=== PATIENT | male | born 1970 ===

== ENCOUNTER 2017-06-17 09:07 | Emergency (ER) | payer OTHER ==
[2017-06-17 09:16] VITALS: RESP 16; BMI 29.2
--- NOTE | 2017-06-17 09:39 | ED PDOC ---
HPI: General Adult Time Seen by Provider: 06/17/17 09:18 Chief Complaint (Nursing): Chest Pain Chief Complaint (Provider): Sore throat, Cough, Fever History Per: Patient History/Exam Limitations: no limitations Onset/Duration Of Symptoms: Days (x2) Current Symptoms Are (Timing): Still Present Additional Complaint(s): 46 year old male, with a past medical history of diabetes and HTN, who presents to the ED complaining of sore throat, body aches, non-productive cough, and subjective fever x2 days. Denies shortness of breath. Complaining of pleuritic chest pain when coughing. PMD: Non-[facility] Provider Past Medical History Reviewed: Historical Data, Nursing Documentation, Vital Signs Vital Signs: Last Vital Signs Temp 98.0 F 06/17/17 09:20 Pulse 96 H 06/17/17 09:20 Resp 16 06/17/17 09:20 BP 162/102 H 06/17/17 09:20 Pulse Ox 98 06/17/17 09:42 - Medical History PMH: Diabetes, HTN, Hypercholesterolemia, Hyperlipidemia - Surgical History Surgical History: No Surg Hx - Family History Family History: States: Unknown Family Hx - Home Medications Home Medications: Ambulatory Orders Medication Instructions Recorded Lisinopril 20 mg PO DAILY #30 tab 08/29/14 Cyclobenzaprine [Cyclobenzaprine 10 mg PO BID #14 tab 07/03/16 HCl] Ibuprofen [Motrin] 400 mg PO Q6 #30 tab 07/03/16 Naproxen [Naprosyn] 500 mg PO Q12H #20 tab 06/17/17 Oseltamivir [Tamiflu] 75 mg PO BID #10 cap 06/17/17 - Allergies Allergies/Adverse Reactions: Allergies Allergy/AdvReac Type Severity Reaction Status Date / Time No Known Allergies Allergy Verified 06/17/17 09:20 Review of Systems ROS Statement: Except As Marked, All Systems Reviewed And Found Negative Constitutional: Positive for: Fever (subjective) ENT: Positive for: Throat Pain Cardiovascular: Positive for: Chest Pain (pleuritic, when coughing) Respiratory: Positive for: Cough. Negative for: Shortness of Breath, Sputum Musculoskeletal: Positive for: Other (Body aches) Physical Exam - Reviewed Nursing Documentation Reviewed: Yes Vital Signs Reviewed: Yes - Physical Exam Appears: Positive for: Non-toxic, No Acute Distress Head Exam: Positive for: ATRAUMATIC, NORMAL INSPECTION, NORMOCEPHALIC Skin: Positive for: Normal Color, Warm, Dry. Negative for: Rash Eye Exam: Positive for: EOMI, Normal appearance, PERRL ENT: Positive for: Pharyngeal Erythema. Negative for: Tonsillar Exudate Neck: Positive for: Normal, Painless ROM, Supple Cardiovascular/Chest: Positive for: Regular Rate, Rhythm. Negative for: Murmur Respiratory: Positive for: Rhonchi (scattered). Negative for: Wheezing Gastrointestinal/Abdominal: Positive for: Normal Exam, Bowel Sounds, Soft. Negative for: Tenderness Back: Positive for: Normal Inspection. Negative for: L CVA Tenderness, R CVA Tenderness, Vertebral Tenderness Extremity: Positive for: Normal ROM. Negative for: Pedal Edema, Deformity Neurologic/Psych: Positive for: Alert, Oriented (x3). Negative for: Motor/ Sensory Deficits - ECG O2 Sat by Pulse Oximetry: 98 (RA) Pulse Ox Interpretation: Normal Medical Decision Making Medical Decision Making: Time: 09:31 Plan: --Chest X-Ray 2 views --Influenza A B --Reevaluation Scribe Attestation: Documented by Edward Tee, acting as a scribe for Ross Mckeon MD. Provider Scribe Attestation: All medical record entries made by the Scribe were at my direction and personally dictated by me. I have reviewed the chart and agree that the record accurately reflects my personal performance of the history, physical exam, medical decision making, and the department course for this patient. I have also personally directed, reviewed, and agree with the discharge instructions and disposition. Disposition - Clinical Impression Clinical Impression: Influenza - Patient ED Disposition Is Patient to be Admitted: No Counseled Patient/Family Regarding: Studies Performed, Diagnosis, Need For Followup, Rx Given - Disposition Referrals: [facility] [Outside] Disposition: Routine/Home Disposition Time: 10:43 Condition: FAIR Prescriptions: Naproxen [Naprosyn] 500 mg PO Q12H #20 tab Oseltamivir [Tamiflu] 75 mg PO BID #10 cap Instructions: Influenza (ED) Forms: [employer] (Kazakh)
--- NOTE | 2017-06-17 09:55 | RAD ---
HISTORY: cough COMPARISON: Chest radiograph dated 07/03/2016. TECHNIQUE: Chest PA and lateral FINDINGS: LUNGS: No active pulmonary disease. PLEURA: No significant pleural effusion identified. No pneumothorax apparent. CARDIOVASCULAR: Normal. OSSEOUS STRUCTURES: No significant abnormalities. VISUALIZED UPPER ABDOMEN: Normal. OTHER FINDINGS: None. IMPRESSION: No active disease.
[2017-06-17 10:53] VITALS: BP 126/83; PULSE 82; TEMP 97; O2SAT 99
== END 2017-06-17 10:53 | disposition home or self-care (01) ==
LOC: H.ER 09:07
DX: J11.1 Influenza due to unidentified influenza virus with other respiratory manifestations (principal); E11.9 Type 2 diabetes mellitus without complications; E78.00 Pure hypercholesterolemia, unspecified; I10 Essential (primary) hypertension

== ENCOUNTER 2018-06-21 08:34 | Emergency (ER) | payer OTHER ==
[2018-06-21 08:40] VITALS: RESP 18; O2SAT 98; BMI 31.5
[2018-06-21 08:56] VITALS: TEMP 97
[2018-06-21 09:52] LABS: BASO % 0.8 % (0.0-2.0); EOS # 0.2 K/uL (0.0-0.7); EOS % 3.4 % (0.0-4.0); HEMOGLOBIN 13.6 g/dL (12.0-18.0); LYMPH # 1.2 K/uL (1.0-4.3); LYMPH % 21.5 % (20.0-40.0); MEAN CORPUSCULAR HEMOGLOBIN 31.1 pg (27.0-31.0); MEAN CORPUSCULAR HGB CONC 33.8 g/dL (33.0-37.0); MONO # 0.4 K/uL (0.0-0.8); NEUT # 3.8 K/uL (1.8-7.0); NEUT % 67.3 % (50.0-75.0); NRBC % 0.1 % (0.0-0.0); RBC 4.37 Mil/uL (4.40-5.90); RED CELL DISTRIBUTION WIDTH 13.5 % (11.5-14.5); WHITE BLOOD COUNT 5.6 K/uL (4.8-10.8)
[2018-06-21 10:02] LABS: URINE BILIRUBIN NEGATIVE (NEGATIVE); URINE BLOOD NEGATIVE (NEGATIVE); URINE CLARITY CLEAR (Clear); URINE COLOR YELLOW (YELLOW); URINE GLUCOSE (UA) NEG (NEGATIVE); URINE LEUKOCYTE ESTERASE NEG Leu/uL (Negative); URINE PROTEIN NEGATIVE (NEGATIVE); URINE UROBILINOGEN 0.2-1.0 mg/dL (0.2-1.0)
--- NOTE | 2018-06-21 10:02 | ED PDOC ---
HPI: Abdomen Time Seen by Provider: 06/21/18 09:10 Chief Complaint (Nursing): Abdominal Pain History Per: Patient History/Exam Limitations: no limitations Onset/Duration Of Symptoms: Hrs Outside of [place] travel?: No Current Symptoms Are (Timing): Still Present Location Of Pain/Discomfort: LUQ, LLQ Quality Of Discomfort: Sharp, Pressure Associated Symptoms: denies: Fever, Chills, Nausea, Vomiting, Diarrhea, Constipation, Urinary Symptoms Exacerbating Factors: None Additional History Per: Patient Additional Complaint(s): Hx of HTN, HLD presenting with abdominal pain that started last night, states it is left sided, associated with pressure-like pain that evolved into sharp pain today. States he took naprosyn last night that helped him to sleep. States he had a kidney stone 15 - 20 years but unsure if his symptoms today are similar or not. Denies nausea, vomiting, diarrhea, constipation, urinary symptoms. PMD: Past Medical History Vital Signs: Last Vital Signs Temp 97.0 F L 06/21/18 08:50 Pulse 80 06/21/18 08:50 Resp 18 06/21/18 08:50 BP 149/90 06/21/18 08:50 Pulse Ox 98 06/21/18 08:50 - Medical History PMH: Diabetes, HTN, Hypercholesterolemia, Hyperlipidemia, Kidney Stones, Chronic Kidney Disease - Family History Family History: States: Unknown Family Hx - Immunization History Hx Tetanus Toxoid Vaccination: No Hx Influenza Vaccination: Yes Hx Pneumococcal Vaccination: No - Home Medications Home Medications: Ambulatory Orders Medication Instructions Recorded Lisinopril 20 mg PO DAILY #30 tab 08/29/14 Cyclobenzaprine [Cyclobenzaprine 10 mg PO BID #14 tab 07/03/16 HCl] Ibuprofen [Motrin] 400 mg PO Q6 #30 tab 07/03/16 Naproxen [Naprosyn] 500 mg PO Q12H #20 tab 06/17/17 Oseltamivir Cap [Tamiflu] 75 mg PO BID #10 cap 06/17/17 Dicyclomine [Bentyl] 10 mg PO TID PRN #10 cap 06/21/18 Ibuprofen [Motrin Tab] 600 mg PO Q6 PRN #15 tab 06/21/18 - Allergies Allergies/Adverse Reactions: Allergies Allergy/AdvReac Type Severity Reaction Status Date / Time No Known Allergies Allergy Verified 06/17/17 09:20 Review of Systems ROS Statement: Except As Marked, All Systems Reviewed And Found Negative Cardiovascular: Negative for: Chest Pain Respiratory: Negative for: Cough Gastrointestinal: Positive for: Abdominal Pain. Negative for: Nausea, Vomiting Genitourinary Male: Negative for: Dysuria Physical Exam - Reviewed Nursing Documentation Reviewed: Yes Vital Signs Reviewed: Yes - Physical Exam Appears: Positive for: Well, Non-toxic, No Acute Distress Head Exam: Positive for: ATRAUMATIC, NORMAL INSPECTION, NORMOCEPHALIC Skin: Positive for: Normal Color, Warm, DRY Eye Exam: Positive for: EOMI, Normal appearance, PERRL ENT: Positive for: Normal ENT Inspection Neck: Positive for: Normal, Painless ROM Cardiovascular/Chest: Positive for: Regular Rate, Rhythm Respiratory: Positive for: CNT, Normal Breath Sounds Gastrointestinal/Abdominal: Positive for: Normal Exam, Soft, Tenderness (Mild tenderness of LUQ, LLQ) Back: Positive for: Normal Inspection Extremity: Positive for: Normal ROM Neurologic/Psych: Positive for: Alert, Oriented - Laboratory Results Result Diagrams: 06/21/18 09:40 06/21/18 09:40 - ECG O2 Sat by Pulse Oximetry: 98 Pulse Ox Interpretation: Normal Medical Decision Making Medical Decision MakinAM Hx of HTN, HLD presenting with L sided abdominal pain --Comfortable, normal vitals, well appearing --Differential includes but not limited to: gas, diverticulitis, colitis, constipation, kidney stone --Will get labs, CT, give toradol, and re-eval 1300 Patient being endorsed from provider to Dr. Sanchez. Disposition - Clinical Impression Clinical Impression: Abdominal pain - Patient ED Disposition Is Patient to be Admitted: Transfer of Care Discussed With : John Sanchez III - Disposition Referrals: Ramiro Chu MD [Medical Doctor] - Disposition: Transfer of Care Disposition Time: 13:00 Condition: STABLE Additional Instructions: See securities consultant if pain persists for possible further testing/colonoscopy. Return to ER for any new or worsening symptoms. See PMD for outpatient ultrasound of your kidneys. Prescriptions: Dicyclomine [Bentyl] 10 mg PO TID PRN #10 cap PRN Reason: Gi Distress Ibuprofen [Motrin Tab] 600 mg PO Q6 PRN #15 tab PRN Reason: Pain, Moderate (4-7) Instructions: Acute Abdomen (Belly Pain), Adult (DC) Forms: [facility] (Sri Lankan)
[2018-06-21 10:09] LABS: ALB/GLOB RATIO 1.6 (1.0-2.1); ALBUMIN 4.5 g/dL (3.5-5.0); ALT/SGPT 39 U/L (21-72); AST/SGOT 40 U/L (17-59); BILIRUBIN,DIRECT 0.2 mg/ml (0.0-0.4); BLOOD UREA NITROGEN 22 mg/dl (9-20); CALCIUM 9.3 mg/dL (8.4-10.2); GFR NON-AFRICAN AMERICAN > 60
[2018-06-21 10:45] VITALS: BP 125/80; PULSE 70
[2018-06-21] MEDS ORDERED: Iohexol 300 100 ML IJ ONE (10:52)
[2018-06-21] MEDS ORDERED: Sodium Chloride 0.9% 50 ML IV ONE (10:52)
--- NOTE | 2018-06-21 13:17 | ED PDOC ---
- Laboratory Results Result Diagrams: 06/21/18 09:40 06/21/18 09:40 Lab Results: Total Bilirubin 0.7 mg/dl (0.2-1.3) 06/21/18 09:40 Direct Bilirubin 0.2 mg/ml (0.0-0.4) 06/21/18 09:40 AST 40 U/L (17-59) 06/21/18 09:40 ALT 39 U/L (21-72) 06/21/18 09:40 Alkaline Phosphatase 79 U/L (38-126) 06/21/18 09:40 Total Protein 7.4 G/DL (6.3-8.2) 06/21/18 09:40 Albumin 4.5 g/dL (3.5-5.0) 06/21/18 09:40 Globulin 2.8 gm/dL (2.2-3.9) 06/21/18 09:40 Albumin/Globulin Ratio 1.6 (1.0-2.1) 06/21/18 09:40 Urine Color Yellow (YELLOW) 06/21/18 09:40 Urine Clarity Clear (Clear) 06/21/18 09:40 Urine pH 5.0 (5.0-8.0) 06/21/18 09:40 Ur Specific Byron 1.021 (1.003-1.030) 06/21/18 09:40 Urine Protein Negative mg/dL (NEGATIVE) 06/21/18 09:40 Urine Glucose (UA) Neg mg/dL (NEGATIVE) 06/21/18 09:40 Urine Ketones Negative mg/dL (NEGATIVE) 06/21/18 09:40 Urine Blood Negative (NEGATIVE) 06/21/18 09:40 Urine Nitrate Negative (NEGATIVE) 06/21/18 09:40 Urine Bilirubin Negative (NEGATIVE) 06/21/18 09:40 Urine Urobilinogen 0.2-1.0 mg/dL (0.2-1.0) 06/21/18 09:40 Ur Leukocyte Esterase Neg Xuan/uL (Negative) 06/21/18 09:40 Urine RBC (Auto) 3 /hpf (0-3) 06/21/18 09:40 Urine Microscopic WBC 1 /hpf (0-5) 06/21/18 09:40 - ECG O2 Sat by Pulse Oximetry: 98 Medical Decision Making Medical Decision Making: Time: 1300 Patient is endorsed to provider from Dr. Serrano. Pending CT. Time:1400 FINDINGS: LOWER THORAX: Mild passive/dependent type atelectasis both posterior lower lung celis. No effusion or basilar pneumothorax. Heart size is mildly enlarged. No significant pericardial effusion.. LIVER: Liver is enlarged measuring over 21 cm in CC dimension.. No obvious hepatic masses collections or calcifications. Portal and splenic veins opacified. GALLBLADDER AND BILE DUCTS: Gallbladder is physiologically distended. No evidence of intraluminal gallbladder calculi. PANCREAS: Pancreas is slightly atrophic and fatty replaced. No pancreatic masses collections or calcifications.. SPLEEN: Spleen exhibits relatively normal size and attenuation pattern without mass collection or calcification.. ADRENALS: No adrenal lesions are identified. Able. KIDNEYS AND URETERS: Kidneys demonstrate symmetric nephrograms. There is a small curvilinear 3.4 mm nonobstructing calcification seen in the upper/mid pole collecting system right kidney. Small 3.6 mm on nonobstructing calculus seen in the lower pole collecting system left kidney. Probable bilateral renal cysts, the largest of these suspected cyst located upper pole right kidney measuring approximately 16.5 mm; however Hounsfield units in the upper teens suggest proteinaceous content possibly hyperdense or hemorrhagic cyst. Recommend follow-up ultrasound further evaluation to exclude any solid components.. BLADDER: The urinary bladder is incompletely distended which in part accounts for thick- walled appearance. Muscular hypertrophy presumably contributes. Correlation with urinalysis to exclude cystitis. Prostate gland. REPRODUCTIVE: Prostate gland measures approximately 4.7 cm. Prostatic calcifications present. APPENDIX: Normal-appearing appendix containing air and hyperdense debris present. BOWEL: Evaluation of the abdomen bowel limited due to the lack of circulating intravenous contrast material. Stomach is incompletely distended with slight thick-walled appearance. Visualized loops of small bowel exhibit normal contour and caliber. There appears to be some fecalized content within few distal loops of small bowel. Stool and air seen throughout the large bowel. No definitive mural wall thickening. PERITONEUM: Unremarkable. No fluid collection. No free air. Small bilateral fat containing inguinal hernias are present. There is also small fat containing umbilical hernia. LYMPH NODES: Unremarkable. No enlarged lymph nodes. VASCULATURE: Unremarkable. No aortic aneurysm. No aortic atherosclerotic calcification or mural plaque present. BONES: Mild multilevel degenerative spondylosis of the lower thoracic and lumbar spine.. OTHER FINDINGS: None. IMPRESSION: Hepatomegaly with mild to moderate hepatic infiltration.. There are bilateral nonobstructing renal calculi. Probable bilateral renal cysts the largest located in the upper pole right kidney. Follow-up of renal ultrasound could be performed to confirm and exclude any solid components. Mild urinary bladder wall thickening likely due to incomplete distention and muscular hypertrophy however correlation with urinalysis to exclude cystitis. Scribe Attestation: Documented by Buster Moyer, acting as a scribe for John Sanchez III, DO. Provider Scribe Attestation: All medical record entries made by the Scribe were at my direction and personally dictated by me. I have reviewed the chart and agree that the record accurately reflects my personal performance of the history, physical exam, medical decision making, and the department course for this patient. I have also personally directed, reviewed, and agree with the discharge instructions and disposition. Disposition - Disposition Forms: [employer] (Croatian)
--- NOTE | 2018-06-21 14:04 | CT ---
Date of service: 2018-06-21 12:15:21 PROCEDURE: CT Abdomen and Pelvis with Oral contrast. HISTORY: LLQ pain COMPARISON: None. TECHNIQUE: Contiguous axial images of the abdomen and pelvis performed following intravenous injection of approximately 95 cc Omnipaque 300 contrast material. Additional 2D sagittal and coronal sagittal reformats generated. Radiation dose: Total exam DLP = 945.42 mGy-cm. This CT exam was performed using one or more of the following dose reduction techniques: Automated exposure control, adjustment of the mA and/or kV according to patient size, and/or use of iterative reconstruction technique. FINDINGS: LOWER THORAX: Mild passive/dependent type atelectasis both posterior lower lung celis. No effusion or basilar pneumothorax. Heart size is mildly enlarged. No significant pericardial effusion.. LIVER: Liver is enlarged measuring over 21 cm in CC dimension.. No obvious hepatic masses collections or calcifications. Portal and splenic veins opacified. GALLBLADDER AND BILE DUCTS: Gallbladder is physiologically distended. No evidence of intraluminal gallbladder calculi. PANCREAS: Pancreas is slightly atrophic and fatty replaced. No pancreatic masses collections or calcifications.. SPLEEN: Spleen exhibits relatively normal size and attenuation pattern without mass collection or calcification.. ADRENALS: No adrenal lesions are identified. Able. KIDNEYS AND URETERS: Kidneys demonstrate symmetric nephrograms. There is a small curvilinear 3.4 mm nonobstructing calcification seen in the upper/mid pole collecting system right kidney. Small 3.6 mm on nonobstructing calculus seen in the lower pole collecting system left kidney. Probable bilateral renal cysts, the largest of these suspected cyst located upper pole right kidney measuring approximately 16.5 mm; however Hounsfield units in the upper teens suggest proteinaceous content possibly hyperdense or hemorrhagic cyst. Recommend follow-up ultrasound further evaluation to exclude any solid components.. BLADDER: The urinary bladder is incompletely distended which in part accounts for thick-walled appearance. Muscular hypertrophy presumably contributes. Correlation with urinalysis to exclude cystitis. Prostate gland. REPRODUCTIVE: Prostate gland measures approximately 4.7 cm. Prostatic calcifications present. APPENDIX: Normal-appearing appendix containing air and hyperdense debris present. BOWEL: Evaluation of the abdomen bowel limited due to the lack of circulating intravenous contrast material. Stomach is incompletely distended with slight thick-walled appearance. Visualized loops of small bowel exhibit normal contour and caliber. There appears to be some fecalized content within few distal loops of small bowel. Stool and air seen throughout the large bowel. No definitive mural wall thickening. PERITONEUM: Unremarkable. No fluid collection. No free air. Small bilateral fat containing inguinal hernias are present. There is also small fat containing umbilical hernia. LYMPH NODES: Unremarkable. No enlarged lymph nodes. VASCULATURE: Unremarkable. No aortic aneurysm. No aortic atherosclerotic calcification or mural plaque present. BONES: Mild multilevel degenerative spondylosis of the lower thoracic and lumbar spine.. OTHER FINDINGS: None. IMPRESSION: Hepatomegaly with mild to moderate hepatic infiltration.. There are bilateral nonobstructing renal calculi. Probable bilateral renal cysts the largest located in the upper pole right kidney. Follow-up of renal ultrasound could be performed to confirm and exclude any solid components. Mild urinary bladder wall thickening likely due to incomplete distention and muscular hypertrophy however correlation with urinalysis to exclude cystitis.
== END 2018-06-21 15:09 | disposition home or self-care (01) ==
LOC: H.ER 08:34
DX: N20.0 Calculus of kidney (principal); I12.9 Hypertensive chronic kidney disease with stage 1 through stage 4 chronic kidney disease, or unspecified chronic kidney disease; E78.00 Pure hypercholesterolemia, unspecified
CPT/HCPCS: 74177; 80048; 80076; 81003; 85025; 96374; 99283; J1885; Q9967